=== PATIENT | female | born 1960 | race Caucasian/White ===

== ENCOUNTER 2019-08-21 09:39 | Outpatient (CLI) | payer MEDICAID, SELFPAY ==
[2019-08-21 12:50] LABS: Calculated LDL 155 mg/dL (<100); Cholesterol 264 mg/dL (<200); HDL Cholesterol 94 mg/dL (40-60); Triglyceride 76 mg/dL (<150)
== END 2019-08-21 09:59 ==
PROVIDERS: PCP Family Medicine; Visit Provider Family Medicine
DX: E78.5 Hyperlipidemia, unspecified (principal)
CPT/HCPCS: 36415; 80061

== ENCOUNTER 2020-06-22 02:38 | Outpatient (CLI) | payer MEDICAID, SELFPAY ==
[2020-06-23 22:17] LABS: Patient Race White; SARS-CoV-2 RNA Undetected (Undetected); SARS-CoV-2 Specimen Source Nasal
== END 2020-06-22 02:58 ==
PROVIDERS: PCP Family Medicine; Visit Provider Family Medicine
DX: Z11.59 Encounter for screening for other viral diseases (principal)
CPT/HCPCS: U0003

== ENCOUNTER 2020-09-01 15:02 | Outpatient (REF) | payer MEDICAID, SELFPAY ==
--- NOTE | 2020-09-01 14:30 | PAPFT_PTH ---
PATIENT: Breana Blandon LOC: [facility] U#:[id number] AGE/SX: 59/F ROOM: RE09/01/[address]: ADRIANA Rodriguez : 1960 BED: DIS: 09/01/2020 SPEC #: [id number] RECD: 09/01/20 18:09 STATUS: WANDA REQ #: [id number] FLORIN: 09/01/20 14:[address]: Cierra Fraire DEPT: [facility] Cytology RECD BY: Genna Guthrie ENTERED: 09/01/20 18:10 SP TYPE: PAPFT OTHR DR: Juno Horne MD Tissues: 1 - CX/ENDOCX FOR PAP SMEARS Procedures: PAP THIN PREP/UVM Screening HPV DNA PROBE Comments: [id number]
== END 2020-09-01 15:03 | disposition home or self-care (01) ==
LOC: LBN 15:02
PROVIDERS: PCP Family Medicine; Visit Provider Nurse Practitioner Family
DX: Z12.4 Encounter for screening for malignant neoplasm of cervix (principal); Z11.51 Encounter for screening for human papillomavirus (HPV)
CPT/HCPCS: 88142; 87624

== ENCOUNTER 2020-11-03 01:35 | Outpatient (CLI) | payer MEDICAID, SELFPAY ==
--- NOTE | 2020-11-03 10:41 | DI.MAMMO_ITS ---
EXAM: MG MAMMO SCREENING CLINICAL HISTORY: screening TECHNIQUE: Bilateral full field digital CC and MLO mammographic images were obtained with 3D tomosyn thesis and utilizing computer aided detection (CAD). COMPARISON: Available for comparison. FINDINGS: Masses/Architectural Distortion: None seen. There is a stable nodule in the upper outer quadrant of t he right breast. Microcalcifications: No suspicious pleomorphic-type are seen. Skin Thickening/Nipple Retraction: None. IMPRESSION: 1. No significant interval change with no specific features of malignancy noted. 2. Unless there is more urgent need, screening mammography is recommended, as per [employer] guidelines. BI-RADS Category 1 - Negative Breast Density - Category B - Scattered areas of fibroglandular density Breast density category C or D implies that the patient has dense breast tissue. Dense breast tissue is very common and is not abnormal but dense breast tissue can make it harder to find cancer on a ma mmogram. Also, dense breast tissue may increase their breast cancer risk. This information about the result of the mammogram report was provided to the patient to raise their awareness. Use this report when you speak with the patient about their risks for breast cancer, which includes their family hist ory. At that time, you may recommend for more screening tests (Ultrasound or MRI) as they might be us eful based on their risk. A negative radiographic report should not delay biopsy if a dominant or clinically suspicious mass is present. Up to ten percent of cancers are not identified on mammography. A negative report may reinforce clinical impression. Adenosis and dense breasts may obscure an underlying neoplasm. False positive reports average 6 to 10%. Patient will receive a letter notifying them of these results.
== END 2020-11-03 01:55 ==
PROVIDERS: PCP Family Medicine; Visit Provider Nurse Practitioner Family
DX: Z12.31 Encounter for screening mammogram for malignant neoplasm of breast (principal)
CPT/HCPCS: 77063; 77067

== ENCOUNTER 2021-09-09 02:50 | Outpatient (CLI) | payer MEDICAID, SELFPAY ==
[2021-09-09 09:50] LABS: Calculated LDL 156 mg/dL (<100); Cholesterol 265 mg/dL (<200); HDL Cholesterol 98 mg/dL (40-60); Triglyceride 59 mg/dL (<150)
[2021-09-09 10:07] LABS: Vitamin D 25 Total 32.2 ng/mL (30-100)
== END 2021-09-09 02:51 | disposition home or self-care (01) ==
LOC: LBO 02:50
PROVIDERS: PCP Family Medicine; Visit Provider Family Medicine
DX: E78.5 Hyperlipidemia, unspecified (principal); G40.909 Epilepsy, unspecified, not intractable, without status epilepticus
CPT/HCPCS: 36415; 80061; 82306

== ENCOUNTER 2022-09-06 00:47 | Outpatient (CLI) | payer MEDICAID, SELFPAY ==
--- NOTE | 2022-09-06 12:44 | DI.RAD_ITS ---
Exam(s) XR SHOULDER RT COMPLETE 2+V EXAM: XR SHOULDER RT COMPLETE 2+V CLINICAL HISTORY: rt shoulder pain,m25.511. TECHNIQUE: 2D digital imaging was performed. COMPARISON: No exams were available for comparison FINDINGS: Five views: No evidence of fracture or dislocation nor abnormal soft tissue calcifications. Mild degenerative ch anges noted in the glenohumeral and AC joints. No obvious diminution of the subacromial space. No o sseous lesions. Ipsilateral clavicle appears intact. IMPRESSION: Some degenerative change in the AC and glenohumeral joints. DATA REPOSITORY: RADIATION DOSE DELIVERED:
== END 2022-09-06 01:07 ==
LOC: DI 00:48
PROVIDERS: PCP Family Medicine; Visit Provider Family Medicine
DX: M19.011 Primary osteoarthritis, right shoulder (principal)
CPT/HCPCS: 73030

== ENCOUNTER 2022-09-14 01:11 | Outpatient (CLI) | payer MEDICAID, SELFPAY ==
--- NOTE | 2022-09-14 08:45 | DI.MAMMO_ITS ---
Exam(s) MAMMO SCREENING EXAM: MAMMO SCREENING CLINICAL HISTORY: screening, Z12.39 TECHNIQUE: Bilateral full field digital CC and MLO mammographic images were obtained with 3D tomosyn thesis and utilizing computer aided detection (CAD). COMPARISON: Available for comparison. FINDINGS: Masses/Architectural Distortion: The small nodules in the upper outer quadrants of each breast are st able. No suspicious nodules or areas of architectural distortion are present. Microcalcifications: No suspicious pleomorphic-type are seen. Skin Thickening/Nipple Retraction: None. IMPRESSION: 1. No significant interval change with no specific features of malignancy noted. 2. Unless there is more urgent need, screening mammography is recommended, as per [employer] guidelines. BI-RADS Category 2 - Benign Findings Breast Density - Category B - Scattered areas of fibroglandular density Breast density category C or D implies that the patient has dense breast tissue. Dense breast tissue is very common and is not abnormal but dense breast tissue can make it harder to find cancer on a ma mmogram. Also, dense breast tissue may increase their breast cancer risk. This information about the result of the mammogram report was provided to the patient to raise their awareness. Use this report when you speak with the patient about their risks for breast cancer, which includes their family hist ory. At that time, you may recommend for more screening tests (Ultrasound or MRI) as they might be us eful based on their risk. A negative radiographic report should not delay biopsy if a dominant or clinically suspicious mass is present. Up to ten percent of cancers are not identified on mammography. A negative report may reinforce clinical impression. Adenosis and dense breasts may obscure an underlying neoplasm. False positive reports average 6 to 10%. Patient will receive a letter notifying them of these results.
== END 2022-09-14 01:31 ==
LOC: DI 01:12
PROVIDERS: PCP Family Medicine; Visit Provider Family Medicine
DX: Z12.31 Encounter for screening mammogram for malignant neoplasm of breast (principal)
CPT/HCPCS: 77063; 77067

== ENCOUNTER 2023-05-13 11:41 | Emergency (ER) | payer MEDICAID, SELFPAY ==
--- NOTE | 2023-05-13 11:45 | DI.RAD_ITS ---
Exam(s) XR ELBOW RT LIMITED EXAM: XR ELBOW RT LIMITED CLINICAL HISTORY: arm pain. TECHNIQUE: 2D digital imaging was performed. COMPARISON: No exams were available for comparison FINDINGS: 3 views No evidence of acute fracture or joint effusion. No swelling of the olecranon bursa. Radial head an d neck appear intact. Epicondyles unremarkable. IMPRESSION: No acute osseous findings in the elbow. DATA REPOSITORY: RADIATION DOSE DELIVERED:
--- NOTE | 2023-05-13 11:45 | DI.RAD_ITS ---
Exam(s) XR WRIST RT COMPLETE EXAM: XR WRIST RT COMPLETE CLINICAL HISTORY: arm pain. TECHNIQUE: 2D digital imaging was performed. COMPARISON: No exams were available for comparison FINDINGS: 3 views There is an acute impacted and dorsally angulated comminuted fracture of the distal radius which viol ates the radiocarpal joint. Dorsal angulation noted there is positive ulnar variance. Subtle sugges tion of fracture of the ulnar styloid tip. Scaphoid and scapholunate distance appear unremarkable. No radiopaque foreign body. IMPRESSION: Intra-articular fracture of the distal radius with dorsal angulation of the distal fragment. Resulta nt positive ulnar variance. Possible subtle fracture of the ulnar styloid. DATA REPOSITORY: RADIATION DOSE DELIVERED:
[2023-05-13 11:51] VITALS: BP 169/78; PULSE 70; RESP 24; O2SAT 100
--- NOTE | 2023-05-13 12:00 | W.ED.GENAD ---
Discharge Plan Disposition Patient Disposition: Home Discharge Details Clinical Impression: Distal radius fracture, right Primary Care Provider: Juno Horne ED Provider: Peter Khan Home Meds and New Rx's Prescriptions: New oxycodone-acetaminophen [Percocet] 5-325 mg tablet 1 tab PO Q6H PRN (Reason: pain) Qty: 12 0RF No Action triamcinolone acetonide 0.1 % cream 1 applic topical BID PRN Patient Comments: APPLY A THIN LAYER TOPICALLY TO AFFECTED AREA ON LEFT EAR TWICE DAILY FOR 5 DAYS OUT OF THE WEEK UP TO 1 MONTH clobetasol 0.05 % solution 1 applic topical DAILY Discharge Instructions Instructions: Wrist Fracture in Adults (ED), Splint Care (ED) Additional Instructions: keep arm in sling and splint. splint can't get wet. can apply ice to help with symptoms. take pain medication as needed, can also take motrin. follow up with ortho clinic Referrals: [facility] [Provider Group] - 1 week (right distal radius, reduced and splinted ) Medical Decision Making Emergent evaluation of right wrist pain. Initial differential includes fracture, dislocation, ligamentous injury, soft tissue injury. Patient has obvious deformity of right forearm. Initial plan for pain control and imaging of the area. 1300: imaging reviewed and independently interpreted. Distal radius fracture noted. No additional fractures appreciated on imaging. 1320: hematoma block done and patient hung in finger traps. patient reports improvement in her pain after these things. 1600: Reduction and splinting performed. Postreduction x-ray reviewed and independently interpreted, there is satisfactory reduction of the fracture fragment. Patient placed in sling. Pain control provided. Referred for orthopedic follow-up. HPI General Date/Time Provider Initiated Documentation: 05/13/23 11:58. Limitations to Documentation: physical limitation. Information obtained by: patient. HPI Narrative: 62-year-old female without significant past medical history presents for evaluation of acute onset severe right wrist pain. She reports that she was walking outside and slipped on a ramp. She landed on her outstretched right arm. She is right-hand dominant. She reports severe pain localized to the right wrist associated with an abnormal appearance of the arm. Pain is worse with touch and any movement. She denies any numbness tingling or bleeding. Related Data Home Medications Medication Instructions Recorded Confirmed clobetasol 0.05 % scalp solution 1 applic topical DAILY 01/13/22 05/13/23 triamcinolone acetonide 0.1 % 1 applic topical BID PRN 09/01/22 05/13/23 topical cream oxycodone-acetaminophen 5 mg-325 1 tab PO Q6H PRN pain #12 tabs 05/13/23 mg tablet (Percocet) Previous Rx's Medication Instructions Recorded oxycodone-acetaminophen 5 mg-325 1 tab PO Q6H PRN pain #12 tabs 05/13/23 mg tablet (Percocet) Allergies Allergy/AdvReac Type Severity Reaction Status Date / Time No Known Drug Allergies Allergy Verified 05/13/23 11:57 General Stated Complaint: Orthopedic ARNIE: 3 PFSH All Active Problems (Updated 05/13/23 @ 15:41 by Peter Khan MD) Distal radius fracture, right (Acute) Shoulder pain, right (Acute) Conductive hearing loss, external ear (Acute) Exostosis of both external ear canals (Acute) 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 MOHS Procedure [facility]UPP[facility] LIP Arthroplasty of knee (06/28/13) LEFT KNEE; PARTIAL LATERAL MENISCECTOMY; CHONDOPLASTY; OPEN LATERAL RETINACULAR RELEASE; 05/16/16 LEFT KNEE, [facility] Family History Mother Hypothyroidism Father , age 82 Hyperlipidemia Asthma Skin cancer CAD (coronary artery disease) of [place] at age 82 Sister Asthma Brother Asthma Maternal Grandfather Heart disease Paternal Grandfather Diabetes Essential hypertension Heart disease Hyperlipidemia Stroke Alcohol abuse Cancer Maternal Grandmother Depression Cancer Paternal Grandmother No problems noted. Son No problems noted. Daughter No problems noted. Social History Smoking/Tobacco Use Status: Never Second Hand Exposure: No Smoking risk assessment performed?: Yes Alcohol Intake: current Alcohol Intake frequency: a few times a week Alcohol type: wine Drug use: Never Substance use type: does not use Counseling provided: none Caregiver/Support person: No Household members: spouse Housing: house Communication Needs: None Do you need help understanding health information?: Rarely current occupation: SELF-EMPLOYED Pets and animals: Yes Pets and animals: cat(s) and dog(s) Sexually active: Yes Do you think of yourself as: straight/heterosexual Current gender identity: female What is your relationship status?: How often do you talk on the phone with friends or family?: three or more times per week How often do you get together with friends or relatives?: three or more times per week How often do you attend jew or adventism services?: decline to answer Do you belong to any clubs or organized social groups?: decline to answer Panel score (0-1 are the most socially isolated patients): 2 What type of physical activity do you participate in: walking Duration: > 90 minutes/day Frequency: daily Dian/Mandaeism: No preference Special dian needs: No Seatbelt use: always Helmet use: Yes Helmet use: always 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 Elbow nontender, compartments soft, right shoulder nontender No rashes or lesions. no focal neurologic deficits Appropriate mood and affect Course Vital Signs Vital signs: Vital Signs Pulse 70 05/13/23 11:51 Respiratory Rate 24 05/13/23 11:51 Blood Pressure 169/78 H 05/13/23 11:51 Pulse Oximetry 100 05/13/23 11:51 Pulse 70 05/13/23 11:51 Respiratory Rate 24 05/13/23 11:51 Blood Pressure 169/78 H 05/13/23 11:51 Blood Pressure Position Sitting 05/13/23 11:51 Pulse Oximetry 100 05/13/23 11:51 Oxygen Delivery Method Room Air 05/13/23 11:51 Oxygen Flow Rate 0 05/13/23 11:51 Pain Level 10 05/13/23 11:51 Procedures Nerve Block Nerve Block 1: Local Anesthetic: Lidocaine 1% Amount of anesthesia used (mL): 5 Side: right Nerve Blocks: hematoma block Procedure Successful: Yes Patient Tolerated Procedure: well and no complications Orthopedic Fracture Reduction Fracture #1: Side: right Fracture Reduction Location: radius Analgesia: hematoma block Technique: direct manipulation and finger traps Post Reduction X-rays Demonstrate: acceptable reduction Post-reduction neuro exam: intact Post-reduction vascular exam: intact Splint Applied: Yes Patient Tolerated Procedure: well and no complications Orthopedic Splinting/Casting Injury #1: Side: right Upper Extremity Injury Location: forearm Upper Extremity Immobilizer: sugartong splint Other Orthopedic Equipment: other (Sling)
[2023-05-13] MEDS: fentaNYL 100 MCG/2 ML VIAL IVP (12:05)
[2023-05-13] MEDS: Ondansetron 4 MG/2 ML VIAL IVP (12:05)
--- NOTE | 2023-05-13 12:15 | DI.RAD_ITS ---
Exam(s) XR SHOULDER RT COMPLETE 2+V EXAM: XR SHOULDER RT COMPLETE 2+V CLINICAL HISTORY: arm pain. TECHNIQUE: 2D digital imaging was performed. COMPARISON: CR XR SHOULDER RT COMPLETE 2+V from 09/06/2022 FINDINGS: 3 views No evidence of acute fracture or dislocation. Minimal degenerative changes in the glenohumeral joint . Moderate degenerative changes in the AC joint. There is some narrowing of the subacromial space e vident but no prominent upward subluxation of the humeral head in the glenoid fossa. IMPRESSION: No acute fracture nor dislocation. Some diminution of the subacromial space noted. This may correla te with rotator cuff pathology. DATA REPOSITORY: RADIATION DOSE DELIVERED:
--- NOTE | 2023-05-13 13:02 | DI.VRAD_ITS ---
PROCEDURE INFORMATION: Exam: XR Right Elbow Exam date and time: 05/13/2023 12:43 PM Age: 62 years old Clinical indication: Injury or trauma; Fall; Blunt trauma (contusions or hematomas); Wrist; Right TECHNIQUE: Imaging protocol: Radiologic exam of the right elbow. Views: 1 or 2 views. COMPARISON: CR XR WRIST RT COMPLETE 05/13/2023 12:37 PM FINDINGS: Bones/joints: Normal. Soft tissues: Normal. IMPRESSION: No acute findings. Dictated and Authenticated by: Stacie Celeste MD. Ordering:CHEMO Melgar MD
--- NOTE | 2023-05-13 13:02 | DI.VRAD_ITS ---
PROCEDURE INFORMATION: Exam: XR Right Wrist Exam date and time: 05/13/2023 12:37 PM Age: 62 years old Clinical indication: Injury or trauma; Fall; Blunt trauma (contusions or hematomas); Wrist; Right TECHNIQUE: Imaging protocol: Radiologic exam of the right wrist. Views: 3 or more views. COMPARISON: No relevant prior studies available. FINDINGS: Bones/joints: Intra-articular fracture deformity of the distal right radius with dorsal angulation of the distal fracture fragments. Soft tissues: Normal. IMPRESSION: Intra-articular fracture deformity of the distal right radius with dorsal angulation of the distal fracture fragments Dictated and Authenticated by: Stacie Celeste MD. Ordering:CHEMO Melgar MD
--- NOTE | 2023-05-13 13:09 | DI.VRAD_ITS ---
PROCEDURE INFORMATION: Exam: XR Right Shoulder Exam date and time: 05/13/2023 12:51 PM Age: 62 years old Clinical indication: Injury or trauma; Fall; Blunt trauma (contusions or hematomas); Arm, upper; Right TECHNIQUE: Imaging protocol: Radiologic exam of the right shoulder. Views: 2 or more views. COMPARISON: CR XR SHOULDER RT COMPLETE 2+V 09/06/2022 12:39 PM FINDINGS: Bones/joints: Degenerative changes in the acromioclavicular joint and glenohumeral joint. There is no evidence of acute fracture.There is no evidence of malalignment or dislocation. Narrowing of the subacromial space may indicate impingement syndrome. Soft tissues: Normal. IMPRESSION: 1. There is no evidence of acute fracture.There is no evidence of malalignment or dislocation. 2. Narrowing of the subacromial space may indicate impingement syndrome. Dictated and Authenticated by: Susan Campbell MD. Ordering:CHEMO Melgar MD
[2023-05-13 13:35] VITALS: BP 138/64; PULSE 70; RESP 18; O2SAT 100
[2023-05-13] MEDS: ACETAMINOPHEN 1,000 MG/100 ML BTL 400 MG IVPB (14:48)
[2023-05-13] MEDS: Ketorolac 15 MG/ML VIAL 10 MG IVP (14:49)
--- NOTE | 2023-05-13 15:00 | DI.RAD_ITS ---
Exam(s) XR WRIST RT LIMITED EXAM: XR WRIST RT LIMITED CLINICAL HISTORY: wrist pain post reduction. TECHNIQUE: 2D digital imaging was performed. COMPARISON: CR,XR XR WRIST RT COMPLETE from 05/13/2023 FINDINGS: 3 views: In cast post reduction views Improved alignment and less dorsal angulation at the distal radius fracture site evident. No signifi cant remaining ulnar variance. There appears to be probable fracture of the ulnar styloid tip. IMPRESSION: Improved alignment. Less dorsal angulation. DATA REPOSITORY: RADIATION DOSE DELIVERED:
--- NOTE | 2023-05-13 15:32 | DI.VRAD_ITS ---
PROCEDURE INFORMATION: Exam: XR Right Wrist Exam date and time: 05/13/2023 3:14 PM Age: 62 years old Clinical indication: Pain; Right; Patient HX: R wrist post-reduction TECHNIQUE: Imaging protocol: Radiologic exam of the right wrist. Views: 1 or 2 views. COMPARISON: CR XR WRIST RT COMPLETE 05/13/2023 12:37 PM FINDINGS: Tubes, catheters and devices: Plaster splint in place Bones/joints: Comminuted displaced impacted distal radius fracture after reduction is improved in appearance. Fracture fragments are displaced posteriorly. Soft tissues: Soft tissue swelling of the wrist IMPRESSION: Comminuted displaced impacted distal radius fracture after reduction is improved in appearance. Fracture fragments are displaced posteriorly. Dictated and Authenticated by: Susan Campbell MD. Ordering:CHEMO Melgar MD
[2023-05-13] MEDS: oxyCODONE 5 mg/Acetaminophen 325 mg TAB 1 TAB PO (15:54)
[2023-05-13 16:03] VITALS: BP 169/85; PULSE 71; TEMP 36.6; O2SAT 96
--- NOTE | 2023-05-13 23:36 | NUR.NOTE ---
pt called 2330 asking for pain management advice-shooting nerve pain. . per MD -told her she could double up on percocet-2tabs every 4-6 hours, ice, mildly elevate. Nursing Note:
--- NOTE | 2023-05-16 06:54 | NUR.NOTE ---
Accessed pt chart to determine diagnosis for [facility] billing purposes. Nursing Note:
== END 2023-05-13 16:19 | disposition home or self-care (01) ==
PROVIDERS: Emergency Provider Emergency Medicine; PCP Family Medicine
DX: S52.571A Other intraarticular fracture of lower end of right radius, initial encounter for closed fracture (principal); W18.39XA Other fall on same level, initial encounter; Y93.01 Activity, walking, marching and hiking; Y92.9 Unspecified place or not applicable; Y99.9 Unspecified external cause status
CPT/HCPCS: 96374; 96375; 96376; 99283; 25605; 73030; 73070; 73100; 73110; J0131; J1885; J2405; J3010

== ENCOUNTER 2023-05-14 02:32 | Emergency (ER) | payer MEDICAID, SELFPAY ==
[2023-05-14 02:35] VITALS: BP 159/95; PULSE 82; RESP 18; TEMP 36.7; O2SAT 95
--- NOTE | 2023-05-14 02:50 | ED.GENADUL_ITS ---
Discharge Plan Disposition Patient Disposition: Home Discharge Details Chief Complaint: Orthopedic Clinical Impression: Pain due to fracture Primary Care Provider: Juno Horne ED Provider: Andry Noble Home Meds and New Rx's Prescriptions: No Action triamcinolone acetonide 0.1 % cream 1 applic topical BID PRN Patient Comments: APPLY A THIN LAYER TOPICALLY TO AFFECTED AREA ON LEFT EAR TWICE DAILY FOR 5 DAYS OUT OF THE WEEK UP TO 1 MONTH clobetasol 0.05 % solution 1 applic topical DAILY oxycodone-acetaminophen [Percocet] 5-325 mg tablet 1 tab PO Q6H PRN (Reason: pain) Qty: 12 0RF Discharge Instructions Instructions: Narcotic Safety (ED) Additional Instructions: At this time there is no evidence of neurovascular compromise noted on exam. Unfortunately it appears that the pain is the natural component of the fracture. We have slightly loosened up the splint. Please ice the area frequently. You can take 1000 mg of Tylenol every 6 hours and 800 mg of ibuprofen every 6 hours. These are the maximum doses. You can take your Percocets as prescribed, and take one of the Roxicodone's with them for each administration as needed for supplementation. If you notice any worsening of your symptoms, or any new symptoms such as change in color for your fingers, viselike sensation in your hand or wrist or forearm, vomiting, diarrhea, fever, chills, shortness of breath, chest pain, numbness, weakness, or fainting , please return immediately to the emergency department for reevaluation. Please follow up with your primary care provider as soon as possible for reassessment and reevaluation. As always, it was a pleasure participating in your medical care today. Referrals: Juno Horne MD [Primary Care Provider] - Medical Decision Making 62-year-old female who is right-hand dominant who presented earlier today for right distal radius fracture who had a closed reduction performed here in the ED presents tonight for evaluation of continued pain. She was given NSAIDs for home use as well as a few Percocets. Unfortunately she feels that the pain has gotten to a point that it has become notably unbearable. She presents today for further management. She states that it feels like an aching throbbing sensation in her wrist and hand traveling up towards her forearm. She denies any numbness or tingling. No new falls. No other trauma. She has been icing the area and has been taking the Percocets and Tylenol at home as prescribed. Pain is improved when she gets up and performs activities. It seems to be worse when she is lying down trying to sleep. No other complaints at this time. No other modifying factors. Exam was performed to rule out life-threatening etiologies. Exam demonstrates no neurovascular compromise. Good radial pulse. No tense compartments suggestive of compartment syndrome. Symptoms appear consistent with post fracture pain. I suspect it is worsened secondary to the time of night and the increased swelling. The splint was slightly loosened, will recommend continued ice therapy at home as well as maximum dose NSAID therapy. I did discuss options of continued or additional opiate management patient did consent to receive additional opiates at this time for pain control as there is no other evidence of life or limb threatening etiology or neurovascular compromise. No evidence of compartment syndrome. Patient will be given 6 mg of IM morphine, 30 mg of IM Toradol, 4 mg of Zofran, and 4 Roxicodone's to go home with to use as needed. Discussed concerning red flags suggestive of compartment syndrome for which to return. Patient and family understand. I have extensively reviewed the treatment plan and discharge instructions with the patient and their family. I have addressed all patient concerns at this time. The patient and family was made aware of what symptoms to monitor for that would warrant a return to the emergency department. Discussed the plan with the patient and family, they d emonstrate verbal understanding and agreement with our assessment and plan at this time. The documentation in this chart was dictated using Brainly dictation software. Please excuse any dictation errors. HPI General Date/Time Provider Initiated Documentation: 05/14/23 02:33 . HPI Narrative: 62-year-old female who is right-hand dominant who presented earlier today for right distal radius fracture who had a closed reduction performed here in the ED presents tonight for evaluation of continued pain. She was given NSAIDs for home use as well as a few Percocets. Unfortunately she feels that the pain has gotten to a point that it has become notably unbearable. She pres ents today for further management. She states that it feels like an aching throbbing sensation in her wrist and hand traveling up towards her forearm. She denies any numbness or tingling. No new falls. No other trauma. She has been icing the area and has been taking the Percocets and Tylenol at home as prescribed. Pain is improved when she gets up and performs activities. It seems to be worse when she is lying down trying to sleep. No other complaints at this time. No other modifying factors. Related Data Home Medications Medication Instructions Recorded Confirmed clobetasol 0.05 % scalp solution 1 applic topical DAILY 01/13/22 05/13/23 triamcinolone acetonide 0.1 % 1 applic topical BID PRN 09/01/22 05/13/23 topical cream oxycodone-acetaminophen 5 mg-325 1 tab PO Q6H PRN pain #12 tabs 05/13/23 mg tablet (Percocet) Previous Rx's Medication Instructions Recorded oxycodone-acetaminophen 5 mg-325 1 tab PO Q6H PRN pain #12 tabs 05/13/23 mg tablet (Percocet) Allergies Allergy/AdvReac Type Severity Reaction Status Date / Time No Known Drug Allergies Allergy Verified 05/13/23 11:57 General Stated Complaint: Orthopedic ARNIE: 4 Review of Systems All systems reviewed & are unremarkable except as noted in HPI and below PFSH All Active Problems Pain due to fracture (Acute) Distal radius fracture, right (Acute) Shoulder pain, right (Acute) Conductive hearing loss, external ear (Acute) Exostosis of both external ear canals (Acute) Chronic eczematoid otitis externa of both ears (Acute) Impacted cerumen, bilateral (Acute) Vasomotor rhinitis (Acute) Nasal congestion (Acute) Left foot pain (Acute) Watery eyes (Chronic) recommend optometry eval Tear of medial meniscus of knee (Acute 06/12/13) Osteoarthritis of knee (Acute 06/12/13) Knee pain (Acute) Basal cell carcinoma of upper lip (Acute) 03/17/15; [facility] [place] [facility] MICROGRAPHIC SURGERY Anemia (Acute) Surgical History Replacement of total knee joint (04/06/15) Bilateral total knee, [facility] [place] SKIN EXCISION 03/17/15; [facility] [place] UPPER LIP RIGHT MIDLINE. MOHS Procedure [facility] [place] Arthroplasty of knee (06/28/13) LEFT KNEE; PARTIAL LATERAL MENISCECTOMY; CHONDOPLASTY; OPEN LATERAL RETINACULAR RELEASE; 05/16/16 LEFT KNEE, [facility], [facility] Family History Mother Hypothyroidism Father , age 82 Hyperlipidemia Asthma Skin cancer CAD (coronary artery disease) of [place] at age 82 Sister Asthma Brother Asthma Maternal Grandfather Heart disease Paternal Grandfather Diabetes Essential hypertension Heart disease Hyperlipidemia Stroke Alcohol abuse Cancer Maternal Grandmother Depression Cancer Paternal Grandmother No problems noted. Son No problems noted. Daughter No problems noted. Social History Smoking/Tobacco Use Status: Never Second Hand Exposure: No Smoking risk assessment performed?: Yes Alcohol Intake: current Alcohol Intake frequency: a few times a week Alcohol type: wine Drug use: Never Substance use type: does not use Counseling provided: none Caregiver/Support person: No Household members: spouse Housing: house Communication Needs: None Do you need help understanding health information?: Rarely current occupation: SELF-EMPLOYED Pets and animals: Yes Pets and animals: cat(s) and dog(s) Sexually active: Yes Do you think of yourself as: straight/heterosexual Current gender identity: female What is your relationship status?: How often do you talk on the phone with friends or family?: three or more times per week How often do you get together with friends or relatives?: three or more times per week How often do you attend yazidi or restoration services?: decline to answer Do you belong to any clubs or organized social groups?: decline to answer Panel score (0-1 are the most socially isolated patients): 2 What type of physical activity do you participate in: walking Duration: > 90 minutes/day Frequency: daily Dian/Rastafari: No preference Special dian needs: No Seatbelt use: always Helmet use: Yes Helmet use: always Drive intox or ride w/intox 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 3.ENT: Atraumatic external nose and ears. Moist MM. Neck: Symmetric, trachea midline, No thyromegaly. 4.CVS: +S1/S2, No murmurs or gallops. Peripheral pulses 2+ and equal in all extremities. Brisk capillary refill in all extremities. 5.RESP: Unlabored respiratory effort. Clear to auscultation bilaterally. No wheezes rales or rhonchi 6.GI: Soft, Nontender/Nondistended, No hepatosplenomegaly. No guarding or rebound. 7.MSK: Splint was unwrapped on right wrist. Radial pulse +2. No tense compartment. There is some slight swelling in the fingers, but there is good brisk capillary refill in all fingers. Intact sensation throughout the hand. No evidence of compartment syndrome whatsoever. The splint was rewrapped slightly more loosely. No signs of neurovascular compromise. 8.Skin: Warm, Dry. No rashes or lesions. 9.Neuro: vault attendant II-XII grossly intact. Sensation grossly intact, no focal neurologic deficits. 10.Psych: (AAO) x3. Appropriate mood and affect Course Vital Signs Vital signs: Vital Signs Temperature 36.7 C 05/14/23 02:35 Pulse 82 05/14/23 02:35 Respiratory Rate 18 05/14/23 02:35 Blood Pressure 159/95 H 05/14/23 02:35 Pulse Oximetry 95 05/14/23 02:35 Temperature 36.7 C 05/14/23 02:35 Pulse 82 05/14/23 02:35 Respiratory Rate 18 05/14/23 02:35 Respiratory Effort Normal 05/14/23 02:37 Blood Pressure 159/95 H 05/14/23 02:35 Pulse Oximetry 95 05/14/23 02:35 Oxygen Delivery Method Room Air 05/14/23 02:35 Oxygen Flow Rate 0 05/14/23 02:35 Pain Level 7 05/14/23 02:37
[2023-05-14] MEDS: Ketorolac 30 MG/ML VIAL IM (03:00)
[2023-05-14] MEDS: Ondansetron O.D.T. 4 MG TABEF (03:00)
[2023-05-14] MEDS: MORPHine 10 MG/ML VIAL 6 MG IM (03:01)
--- NOTE | 2023-05-14 04:26 | NUR.NOTE ---
Orthopedic Referral faxed to [facility]. Follow-up in 1 week for Right Distal Radius Fracture.
== END 2023-05-14 03:17 | disposition home or self-care (01) ==
PROVIDERS: Emergency Provider Student in an Organized Health Care Education/Training Program; PCP Family Medicine
DX: S52.501A Unspecified fracture of the lower end of right radius, initial encounter for closed fracture (principal); X58.XXXA Exposure to other specified factors, initial encounter
CPT/HCPCS: 96372; 99284; J1885; J2270; J8597

== ENCOUNTER 2023-05-17 12:31 | Day surgery (SDC) | payer MEDICAID, SELFPAY ==
[2023-05-17] VITALS (10 sets, daily range): BP systolic 119–164; BP diastolic 74–95; PULSE 65–78; RESP 11–18; TEMP 36.5–37.1; O2SAT 94–97; BMI 25.7
--- NOTE | 2023-05-17 12:48 | PDOC.DSDIS_ITS ---
Date of service: 05/17/23 Time of Service: 12:48 Discharge Plan Disposition Patient Disposition: Home Condition: Good Discharge Details Reason For Visit: ORIF R Wrist Attending Provider: Edward Henderson Primary Care Provider: Juno Horne Home Meds and New Rx's Prescriptions: New acetaminophen 500 mg tablet 1,000 mg PO TID Qty: 90 3RF ibuprofen 600 mg tablet 600 mg PO TID PRNQty: 90 3RF oxycodone 5 mg tablet 10 mg PO Q6H MDD 6 tabs PRN (Reason: pain) Qty: 18 0RF Continued triamcinolone acetonide 0.1 % cream 1 applic topical BID PRN Patient Comments: APPLY A THIN LAYER TOPICALLY TO AFFECTED AREA ON LEFT EAR TWICE DAILY FOR 5 DAYS OUT OF THE WEEK UP TO 1 MONTH clobetasol 0.05 % solution 1 applic topical DAILY oxycodone-acetaminophen [Percocet] 5-325 mg tablet 1 tab PO Q6H MDD 4 tabs PRN (Reason: pain) Qty: 20 0RF oxycodone 5 mg tablet 10 mg PO Q6H MDD 40 PRN (Reason: pain) Qty: 10 0RF Rx Instructions: severe wrist pain from fracture Discharge Instructions Additional Instructions: Wrist Fracture Fixation Discharge Instructions Activity: You should keep the hand/wrist elevated as much as possible for the first few days. You may use the other fingers as tolerated but avoid trying to do too much too soon. You may perform light activities with the splint in place. Dressing/Cast: Your splint should stay in place at all times. Do NOT get it wet. You may loosen the DUY wrap if you feel it is too tight and then rewrap more loosely. Medications: - You should take Tylenol and Ibuprofen for baseline pain control. - You have been prescribed a stronger pain medication, Oxycodone, for breakthrough pain. - You may apply ice over the wrist, just double bag so it doesn't get wet. Follow-up: 10-14 days Referrals: Edward Henderson MD [ [facility] STAFF PHYSICIAN] - Equipment/Supplies: Splint and Sling Activity:: Elevate Remove Dressings/Wound Care:: Do Not Remove Shower/Bathe:: Cover Diet:: As Tolerated Discharge Orders Discharge Orders: Discharge Order (Routine); Ordered 05/17/23 Ordered By: Nishant Siegel
[2023-05-17] MEDS: Lactated Ringers 1,000 ML 80 ML IV (13:13)
--- NOTE | 2023-05-17 13:20 | ANES.PREOP_ITS ---
General Info Date of Service Date Performed: 05/17/23 Height: 5 ft 11 in Weight: 83.6 kg Body Mass Index (BMI): 25.7 Surgical Procedure: Operation Date: 05/17/23 15:25 Proposed Procedure Side Surgeon p Wrist ORIF Distal Radius Right Edward Henderson MD Meds Allergies and Home Medications Allergies Allergy/AdvReac Type Severity Reaction Status Date / Time No Known Drug Allergies Allergy Verified 05/17/23 12:54 Home Medication Medication Instructions Recorded clobetasol 0.05 % scalp solution 1 applic topical DAILY 01/13/22 triamcinolone acetonide 0.1 % 1 applic topical BID PRN 09/01/22 topical cream oxycodone 5 mg tablet 10 mg (2 x 5 mg) PO Q6H PRN pain 05/15/23 #10 tabs oxycodone-acetaminophen 5 mg-325 1 tab PO Q6H PRN pain #20 tabs 05/15/23 mg tablet (Percocet) acetaminophen 500 mg tablet 1,000 mg (2 x 500 mg) PO TID #90 05/17/23 tabs ibuprofen 600 mg tablet 600 mg PO TID PRN #90 tabs 05/17/23 oxycodone 5 mg tablet 10 mg (2 x 5 mg) PO Q6H PRN pain 05/17/23 #18 tabs Current Visit Medications: Current Medications Generic Name Dose Route Start Last Admin Trade Name Freq PRN Reason Stop Dose Admin Acetaminophen 650 mg 05/17/23 12:47 Acetaminophen 325 Mg Tab PO 06/16/23 12:46 Q4H PRN PRN Ringer's Solution 1,000 mls @ 80 mls/hr 05/17/23 06:00 05/17/23 13:13 IV 06/15/23 23:59 80 mls/hr INFUSION LUL Administration Cefazolin Sodium/Dextrose 2 gm in 50 mls @ 100 mls/hr 05/17/23 06:00 Ancef Duplex IVPB 06/15/23 23:59 PREOP LUL IV Miscellaneous Supplies 1 each 05/17/23 06:00 Iv Access IV 06/15/23 23:59 DIRECTED LUL Oxycodone HCl 5 mg 05/17/23 12:47 Oxycodone 5 Mg Tab PO 06/16/23 12:46 Q3H PRN PRN Pain Sodium Chloride 0 ml 05/17/23 06:00 Normal Saline Flush 10 Ml Syr IV 06/15/23 23:59 PRN PRN Sodium Chloride 0 ml 05/17/23 06:00 Normal Saline 10 Ml Vial IJ 06/15/23 23:59 DIRECTED PRN Sterile Water 0 ml 05/17/23 06:00 Water,Injection,Sterile 10 Ml Vial IJ 06/15/23 23:59 DIRECTED PRN PFSH Active Problems Active Problems: Problem Status Onset Code Closed fracture of distal end of right radius S52.501A Pain due to fracture T14.8XXA Distal radius fracture, right S52.501A Shoulder pain, right M25.511 Conductive hearing loss, external ear H90.2 Exostosis of both external ear canals H61.813 Chronic eczematoid otitis externa of both ears H60.8X3 Impacted cerumen, bilateral H61.23 Vasomotor rhinitis J30.0 Nasal congestion R09.81 Left foot pain M79.672 Watery eyes H04.203 Tear of medial meniscus of knee 06/12/13 S83.249A Osteoarthritis of knee 06/12/13 M17.10 Knee pain M25.569 Basal cell carcinoma of upper lip C44.01 Anemia D64.9 Surgical History Surgical History Replacement of total knee joint (04/06/15) Bilateral total knee, [facility] [place] SKIN EXCISION 03/17/15; [facility] [place] UPPER LIP RIGHT MIDLINE. MOHS Procedure [facility] [place]UPPER LIP Arthroplasty of knee (06/28/13) LEFT KNEE; PARTIAL LATERAL MENISCECTOMY; CHONDOPLASTY; OPEN LATERAL RETINACULAR RELEASE; 05/16/16 LEFT KNEE, [facility], [facility] Tobacco Smoking/Tobacco Use Status: Never Passive smoking exposure: No Second hand exposure: No Alcohol Alcohol Intake: current Alcohol intake frequency: a few times a week Alcohol type: wine Substance Use Substance use: Never Substance use type: does not use Counseling provided: none Vital Signs and Lab Results Vital Signs Most Recent Vital Signs in EMR: Most Recent Vital Signs Temp Pulse Resp BP Pulse Ox 36.6 C 78 18 119/90 97 05/17/23 12:30 05/17/23 12:30 05/17/23 12:30 05/17/23 12:30 05/17/23 12:30 Lab Results Blood Type / Crossmatch: No Data to Display Complete Blood Count: No Data to Display Complete Metabolic Panel: No Data to Display Liver Function Panel: No Data to Display Coagulation Panel: No Data to Display Cardiac Panel: No Data to Display Arterial Blood Gas: No Data to Display Venous Blood Gas: No Data to Display Pancreas Panel: No Data to Display Thyroid Panel: No Data to Display Infectious Disease: No Data to Display Blood Cultures: No Data to Display Toxicology Panel: No Data to Display Anesthesia Assessment and Plan Anesthesia History Personal History: No History of Anesthesia Complications Family History: No Family History of Anesthesia Complications Exercise Tolerance Exercise Tolerance: Metabolic Equivalents>4 Pertinent Negatives Pertinent Negatives: No Symptoms of GERD, No Major Cardiovascular Symptoms or Complaints, No Major Pulmonary Symptoms or Complaints and No History of CVA/TIA Cardiac & Pulmonary Exam Cardiac Exam: Normal S1/S2 Heart Sounds Pulmonary Exam: Clear Bilateral Breath Sounds Implantable Cardiac Device Does patient have a Pacemaker or an ICD?: No Airway Exam Known Difficult Airway: No Mallampati Class: 2 Mouth Opening: Normal (> 3cm) Thyromental Distance: Greater than 3 cm Neck Range of Motion: Full ROM Neck Circumference: Normal Teeth Condition: Normal Dentition ASA Classification ASA Score: ASA 2 Emergency Case?: No NPO Status NPO Status: NPO Clears >2 hours, Solids >8 hours Anesthesia Plan Resuscitation Status: Full Code Anesthesia Technique: General Anesthesia Airway Planned: Natural Airway (Or ETT as a backup depending on block density) Pain Management: Surgeon and patient request nerve block Monitors Used: Standard Monitors Preoperative Comments:: 62 yo female with injury to forearm here for radial ORIF No significant PMH, no problems with anesthesia in the past. Plan of axillary block with GA natural airway, ETT/LMA as backup.
--- NOTE | 2023-05-17 13:31 | W.PREOPHP ---
Assessment and Plan Assessment and plan (1) Closed fracture of distal end of right radius: Status: Acute Assessment and plan: Hellen is a 62-year-old who suffered a fall onto an outstretched right arm, resulting in intra-articular comminuted and displaced distal radius fracture. Given her young age, hand dominance, and intra-articular, displaced nature of the fracture, I recommended proceeding with operative fixation. I reviewed this with her. I reviewed the potential risk to include bleeding, infection, pain, stiffness, damage to nerves and vessels, damage to muscle and tendons, nonunion, nonunion, or prominence, hardware failure. Despite these risk, she elected to proceed. History of Present Illness History of Present Illness Chief Complaint: Right Distal Radius Fracture Narrative: Lorrie is an active 62-year-old who unfortunately fell onto an outstretched right hand, suffering a displaced intra-articular distal radius fracture. She was walking down a ramp which was slippery when she fell try to catch her body weight with the right hand. She had no issues with the right hand or wrist prior to the fall. She denies specific numbness or tingling suffered global different sensation about the hand. She has had significant pain since the fall. She has been taking pain medication, oxycodone, with sometimes minimal improvement. She return to the emergency department due to pain. Her primary care provider did place her on oxycodone 10 mg which has helped out some. However, she continues to have throbbing pain about the right wrist. No recent medical issues. No chest pain or shortness of breath. Review of Systems All systems reviewed & are unremarkable except as noted in HPI and below PFSH All Active Problems Closed fracture of distal end of right radius (Acute) Pain due to fracture (Acute) Distal radius fracture, right (Acute) Shoulder pain, right (Acute) Conductive hearing loss, external ear (Acute) Exostosis of both external ear canals (Acute) Chronic eczematoid otitis externa of both ears (Acute) Impacted cerumen, bilateral (Acute) Vasomotor rhinitis (Acute) Nasal congestion (Acute) Left foot pain (Acute) Watery eyes (Chronic) recommend optometry eval Tear of medial meniscus of knee (Acute 06/12/13) Osteoarthritis of knee (Acute 06/12/13) Knee pain (Acute) Basal cell carcinoma of upper lip (Acute) 03/17/15; [facility] [place]/P Mohs MICROGRAPHIC SURGERY Anemia (Acute) Surgical History Replacement of total knee joint (04/06/15) Bilateral total knee, [facility] [place] SKIN EXCISION 03/17/15; [facility] [place] UPPER LIP RIGHT MIDLINE. MOHS Procedure [facility] [place] L[place] Arthroplasty of knee (06/28/13) LEFT KNEE; PARTIAL LATERAL MENISCECTOMY; CHONDOPLASTY; OPEN LATERAL RETINACULAR RELEASE; 05/16/16 LEFT KNEE, [facility], [facility] Family History Mother Hypothyroidism Father , age 82 Hyperlipidemia Asthma Skin cancer CAD (coronary artery disease) of [place] at age 82 Sister Asthma Brother Asthma Maternal Grandfather Heart disease Paternal Grandfather Diabetes Essential hypertension Heart disease Hyperlipidemia Stroke Alcohol abuse Cancer Maternal Grandmother Depression Cancer Paternal Grandmother No problems noted. Son No problems noted. Daughter No problems noted. Social History Smoking/Tobacco Use Status: Never Second Hand Exposure: No Smoking risk assessment performed?: Yes Alcohol Intake: current Alcohol Intake frequency: a few times a week Alcohol type: wine Drug use: Never Substance use type: does not use Counseling provided: none Caregiver/Support person: No Household members: spouse Housing: house Communication Needs: None Do you need help understanding health information?: Rarely current occupation: SELF-EMPLOYED Pets and animals: Yes Pets and animals: cat(s) and dog(s) Sexually active: Yes Do you think of yourself as: straight/heterosexual Current gender identity: female What is your relationship status?: How often do you talk on the phone with friends or family?: three or more times per week How often do you get together with friends or relatives?: three or more times per week How often do you attend mu-ism or adventist services?: decline to answer Do you belong to any clubs or organized social groups?: decline to answer Panel score (0-1 are the most socially isolated patients): 2 What type of physical activity do you participate in: walking Duration: > 90 minutes/day Frequency: daily Dian/Jehovah'S Witness: No preference Special dian needs: No Seatbelt use: always Helmet use: Yes Helmet use: always Drive intox or ride w/intox sales route driver: No Do you feel safe at home: Yes Do you feel safe in your relationship?: Yes Meds Allergies and Home Medications Allergies Allergy/AdvReac Type Severity Reaction Status Date / Time No Known Drug Allergies Allergy Verified 05/17/23 12:54 Home Medications Medication Instructions Recorded Confirmed Type clobetasol 0.05 % scalp solution 1 applic topical DAILY 01/13/22 05/17/23 History triamcinolone acetonide 0.1 % 1 applic topical BID PRN 09/01/22 05/17/23 History topical cream oxycodone 5 mg tablet 10 mg (2 x 5 mg) PO Q6H PRN pain 05/15/23 05/17/23 Rx #10 tabs oxycodone-acetaminophen 5 mg-325 1 tab PO Q6H PRN pain #20 tabs 05/15/23 05/17/23 Rx mg tablet (Percocet) acetaminophen 500 mg tablet 1,000 mg (2 x 500 mg) PO TID #90 05/17/23 Rx tabs ibuprofen 600 mg tablet 600 mg PO TID PRN #90 tabs 05/17/23 Rx oxycodone 5 mg tablet 10 mg (2 x 5 mg) PO Q6H PRN pain 05/17/23 Rx #18 tabs Exam Const General: cooperative, healthy appearing, comfortable and no acute distress Resp Effort & Inspection: normal respiratory effort and able to speak in complete sentences Auscultation: clear to auscultation bilaterally Cardio Rate: regular rate Rhythm: regular rhythm Extrem Other: Right upper extremity is in a splint. There is notable ecchymosis seen throughout the hand and fingers. Basic thumb extension, thumb flexion, index finger flexion an and extension is intact. Sensation grossly intact to the median, radial, ulnar nerve. Results Imaging Imaging Studies: X-ray of the right wrist shows a displaced intra-articular distal radius fracture. There was some improvement with the alignment after reduction although still notable displacement. The articular split has notable diastases with a lunate facet and the scaphoid facet component. No appreciable proximal extension. Last Vital Signs Temp 36.6 C 05/17/23 12:30 Pulse 78 05/17/23 12:30 Resp 18 05/17/23 12:30 BP 119/90 05/17/23 12:30 Pulse Ox 97 05/17/23 12:30
--- NOTE | 2023-05-17 13:45 | DI.RAD_ITS ---
Exam(s) XR WRIST RT LIMITED EXAM: XR WRIST RT LIMITED CLINICAL HISTORY: RIGHT WRIST FRACTURE. TECHNIQUE: 2D and realtime digital imaging was performed. COMPARISON: CR,XR XR WRIST RT LIMITED from 05/13/2023 FINDINGS: Hard copy images show placement of a volar fixation plate along the distal radius.. Please see procedure note for details. Fluoro time: 55seconds RADIATION DOSE DELIVERED: Ka,r=0.40 mGy
--- NOTE | 2023-05-17 14:14 | W.ANESNERVE ---
Nerve Block Single Injection Procedure Date and Time Date Performed: 05/17/23 Procedure Start: 14:14 Location Where Procedure Performed Procedure Location: Day Surgery Unit Reason Performed: Postoperative Analgesia Requesting Provider: Edward Henderson Timeout Performed Timeout Performed: Yes Monitoring Used ECG, Blood Pressure and SpO2 Sterility Sterility: Hand Hygiene, Surgical Cap, Surgical Mask, Sterile Gloves and Chlorhexidine Sedation Given During Procedure Sedation Given (Indicate Dose Given): Versed IV Dose:: 2 mg Patient Mental Status Patient Mental Status: Sedate with meaningful communication Nerve Block 1st Nerve Block: Laterality: Right Block Type: Axillary Ultrasound Image Saved?: Yes Needle / Catheter Used: 100mm SonoPlex II Local Anesthetic Bolus (Indicate Dose Given): Lidocaine used for local infiltration of skin, Injected in 3-5ml increments after negative blood aspiration and Bupivacaine 0.5% Dose:: 20 ml Additives (Indicate Dose Given): Normal Saline (for hydrodissection) Ultrasound: Sterile probe cover and gel used Nerve Stimulator: Supplement to Ultrasound use and No twitch or parasthesia noted < 0.5 mA Paresthesia: None Post Procedure Pain score (0-10): 4 Procedure Tolerated: No Complications and Patient tolerated well Procedure Outcome: Successful Performed By: Heath Grullon
[2023-05-17] MEDS: ceFAZolin 2 GM/50 ML BAG IVPB (14:30)
[2023-05-17] MEDS: Bupivacaine 0.5% Pres-Free 30 ML VIAL (14:48)
[2023-05-17] MEDS: EPINEPHrine 1 MG/ML AMP pres-free (14:48)
[2023-05-17] MEDS: Droperidol 5 MG/2 ML VIAL 0.625 MG IVP (16:11)
[2023-05-17] MEDS: fentaNYL 100 MCG/2 ML VIAL IVP (16:22)
[2023-05-17] MEDS: oxyCODONE 5 MG TAB PO (17:09)
--- NOTE | 2023-05-17 17:46 | ROE_ITS ---
Date of service: 05/17/23 Time of Service: 14:30 Operative Note Operative Note DATE OF PROCEDURE: 05/17/23 PRE-OP DIAGNOSIS: Right Distal Radius Fracture POST-OP DIAGNOSIS: same PROCEDURE: Open Reduction and Internal Fixation of Right Distal Radius, 3 parts SURGEON: Edward Henderson A/C TECHNICIAN: Nishant Siegel ANESTHESIA TYPE: General:No Airway and Primary Nerve Block Refer to Anesthesia Record ESTIMATED BLOOD LOSS: 10 PATHOLOGY: none sent TOURNIQUET TIME: 44 COMPLICATIONS: None Patient was transported to: PACU Patient's condition: stable Indications: Hellen is a 62 year old female who I have seen for a distal radius fracture. Given the deformity, displacement, fracture pattern, and effect on daily function, I recommended surgical fixation. I reviewed the risk of the procedure to include bleeding, infection co-pay, stiffness, damage to nerves and vessels, damage to muscles and tendons, malunion, nonunion, hardware prominence, tendon rupture, need for repeat procedures. Despite these risks, the patient elected to proceed. Findings: There is a distal radius fracture which had 3 parts. It was reduced and fixed with a Synthes volar locking plate. Procedure Description: Hellen was greeted in the preoperative holding area. The correct patient and site was confirmed and marked. The history and physical was updated. The consent was reviewed the patient and signed. The patient was taken to the PACU for administration of regional anesthetic, axillary block. The patient was taken to the operating room and placed in the supine position. All bony problems were well-padded. The side arm was placed onto a radiolucent hand table. A nonsterile tourniquet was placed high up on the arm. Prophylactic antibiotics in the form of cefazolin were administered. The left arm was prepped with Chl oraPrep and draped in a standard fashion. A timeout was performed for safe surgery. A standard longitudinal incision was made overlying the flexor carpi radialis tendon starting at the distal wrist crease and moving proximally. The skin was incised sharply. The flexor carpi radialis tendon and its sheath is identified. The sheath was opened. The tendon was moved ulnarly in the floor of the sheath was incised. Blunt dissection the flexor pollicis longus muscle belly and tendon were also made radially exposing the pronator quadratus and the distal radius. There is a large tear of the pronator quadratus with portion of the muscle interposed between the volar fracture fragments. The pronater quadratus was elevated with an ulnar-based flap. This exposed the volar distal radius and the fracture. A helton elevator was used for full exposure of the volar surface of the distal radius. The primary fracture line was exposed. Using a series of elevators, curettes, and knife, the fracture was fully debrided of any fibrous tissue and callus formation. I used a freer elevator to help mobilize the fragments. There is a primary volar fracture in the metaphyseal region with a fracture line extending distally between the lunate and scaphoid facets. I then performed a closed reduction with the assistance of a [place] to shoehorn the fracture back in location.. Using gentle traction and fracture manipulation, this reduction was held. Fluoroscopic images were used to confirm adequate reduction. An appropriately sized Synthes volar locking plate was then placed onto the bony surface of the distal radius. Was then held there with a distal radius clamp sandwiching the plate to the distal segment. A single K wire was placed through the distal end. Fluoroscopy was once again used to confirm appropriate positioning of the plate on the distal radius. A reduction K wire was placed into the slotted hole on the shaft but not tightened all the way to allow for manipulation of the distal segment onto the proximal shaft. A single nonlocking screw was placed to the distal portion of the plate securing the plate against the bone of the distal radial metaphysis. Once again, the plate was evaluated to make sure it was aligned appropriately. The single screw was also checked to make sure it was in appropriate positioning for trajectory of future screws. The remainder of the screws within the volar locking plate were filled with locking screws. These were made sure not to penetrate the dorsal cortex. Once these were applied the proximal portion of the plate was further reduced down onto the shaft, which further reduce the distal segment. This was held in position with a tightened reduction K wire. Fluoroscopy was then used against confirm appropriate reduction. Nonlocking screws were placed within the 3 shaft screw holes. The distal nonlocking screw from earlier was replaced with a locking screw. Final x-rays were obtained which demonstrated adequate reduction and positioning of hardware. The dorsal sunrise view was also obtained to ensure correct sizing of screws. The wound was then thoroughly irrigated. The pronator quadratus was reapproximated with a 0 Vicryl, only proximally given the tearing of the muscle and encountered at the onset of the case. The tourniquet was released and there was no notable vascular injury. The fingers were warm and well-perfused. The deep dermal layer was closed with a 2-0 Vicryl. The skin was closed with 4-0 nylon. The wound was dressed with Xeroform, 4 x 4's, web roll. A short arm splint was applied. At the end the case all counts are correct. Patient was transferred back to the PACU in stable condition.
--- NOTE | 2023-05-17 17:48 | W.ANESPOSTOP ---
Postoperative Evaluation Date, Time and Location Date Performed: 05/17/23 Time Performed: 17:42 Patient Location: Day Surgery Unit Vital Signs Most Recent Imported Vital Signs: Most Recent Vital Signs Temp Pulse Resp BP Pulse Ox 36.6 C 73 16 159/89 H 95 05/17/23 17:18 05/17/23 17:18 05/17/23 17:18 05/17/23 17:18 05/17/23 17:18 Pain Score Most Recent Pain Score: Most Recent Pain Score Pain Level 6 05/17/23 17:18 Assessment Mental Status: Awake (Alert & Oriented to Patient Baseline) Airway and Respiratory Function: Patent airway with normal (patient baseline) respiratory exam Cardiovascular Function: Hemodynamically Stable Hydration Status: Adequately Hydrated Nausea & Vomiting: No Nausea or Vomiting (Had some nausea which has now resolved. ) Pain: Pt. Denies Any Pain Peripheral Nerve Block: Regional nerve block not resolved at time of post operative discharge
== END 2023-05-17 18:06 | disposition home or self-care (01) ==
PROVIDERS: PCP Family Medicine; Visit Provider Student in an Organized Health Care Education/Training Program
PROC: (CPT 25609; principal; 2023-05-17 15:15)
DX: S52.571A Other intraarticular fracture of lower end of right radius, initial encounter for closed fracture (principal); W19.XXXA Unspecified fall, initial encounter; D64.9 Anemia, unspecified; Z96.653 Presence of artificial knee joint, bilateral
CPT/HCPCS: 25609; 64417; 76942; 73100; J0171; J0690; J1100; J1790; J1885; J2001; J2250; J2405; J2704; J3010

== ENCOUNTER 2023-05-29 15:17 | Outpatient (CLI) | payer MEDICAID, SELFPAY ==
--- NOTE | 2023-05-29 13:45 | DI.RAD_ITS ---
Exam(s) XR WRIST RT LIMITED EXAM: XR WRIST RT LIMITED CLINICAL HISTORY: S/P ORIF R DISTAL RAD FX. TECHNIQUE: 2D digital imaging was performed of the right wrist. Two views were obtained. PA and la teral views were obtained. COMPARISON: CR,XR XR WRIST RT LIMITED from 05/13/2023 CR XR WRIST RT LIMITED from 05/17/2023 FINDINGS: BONES: The patient is now status post ORIF of the distal radial fracture. Alignment appears near annabella tomic. There is a displaced ulnar styloid process fracture again seen. No bony destructive lesion i s seen. JOINTS: The carpal bones are normally aligned. SOFT TISSUE: Normal. IMPRESSION: Status post ORIF of the distal right radial fracture. Displaced ulnar styloid process fracture. DATA REPOSITORY: RADIATION DOSE DELIVERED:
== END 2023-05-29 15:18 | disposition home or self-care (01) ==
LOC: DIORS 15:17
PROVIDERS: PCP Family Medicine; Visit Provider Student in an Organized Health Care Education/Training Program
DX: S52.571D Other intraarticular fracture of lower end of right radius, subsequent encounter for closed fracture with routine healing (principal); X58.XXXD Exposure to other specified factors, subsequent encounter
CPT/HCPCS: 73100

== ENCOUNTER 2023-06-26 16:03 | Outpatient (CLI) | payer MEDICAID, SELFPAY ==
--- NOTE | 2023-06-26 14:15 | DI.RAD_ITS ---
Exam(s) XR WRIST RT LIMITED EXAM: XR WRIST RT LIMITED INDICATION: F/U lR distal radius fx. COMPARISON: CR XR WRIST RT LIMITED from 05/29/2023 TECHNIQUE: 2D digital imaging was performed. Two views. FINDINGS: There has been no change in the alignment of the distal radial fracture. The fixation plate is uncha nged. Bony densities again noted adjacent to the ulnar styloid. DATA REPOSITORY: RADIATION DOSE DELIVERED:
== END 2023-06-26 16:04 | disposition home or self-care (01) ==
LOC: DIORS 16:03
PROVIDERS: PCP Family Medicine; Visit Provider Student in an Organized Health Care Education/Training Program
DX: S52.501D Unspecified fracture of the lower end of right radius, subsequent encounter for closed fracture with routine healing (principal); X58.XXXD Exposure to other specified factors, subsequent encounter
CPT/HCPCS: 73100

== ENCOUNTER → 2023-07-03 01:32 | Outpatient (CLI) | payer MEDICAID, SELFPAY ==
--- NOTE | 2023-07-03 07:00 | DI.MRI_ITS ---
Exam(s) MR UPPER JOINT RT WO EXAM: MR UPPER JOINT RT WO CLINICAL HISTORY: pain,rt rotator cuff tear,m75.101. TECHNIQUE: Multiplanar multisequence MRI was performed. COMPARISON: None. FINDINGS: BONES: There is no fracture or contusion pattern. Undo degenerative changes at the greater tuberosi ty. JOINTS:The acromioclavicular joint shows mild spurring. Spurring at the tip of the acromion. The gl enohumeral joint shows a moderate effusion. Humeral head articulates with the undersurface of the ac romion. TENDONS: Supraspinatus: Full-thickness tear with retraction to the level of the glenoid. Infraspinatus: Full-thickness tear with retraction Subscapularis: Unremarkable. Teres Minor: Unremarkable. Biceps and Supply: Proximal thickening and intermediate signal. No focal tear. MUSCLES: Mild supraspinatus muscle atrophy, Goutallier classification 2. Alcp-ib-tdeuptrn atrophy o f infraspinatus muscle. GLENOID LABRUM: Unremarkable on this noncontrast examination. SOFT TISSUES: Unremarkable. OTHER: Subacromial and subdeltoid bursae shows moderate fluid. Amount fluid in subcoracoid bursa. IMPRESSION: Full-thickness tears with retraction of the infraspinatus and supraspinatus tendons. Tgbl-ey-dcqsstp e muscle atrophy. Proximal biceps tendinosis. DATA REPOSITORY:
== END ==
PROVIDERS: PCP Family Medicine; Visit Provider Student in an Organized Health Care Education/Training Program
DX: M75.121 Complete rotator cuff tear or rupture of right shoulder, not specified as traumatic (principal)
CPT/HCPCS: 73221

== ENCOUNTER 2023-07-27 13:05 | Outpatient (CLI) | payer MEDICAID, SELFPAY ==
--- NOTE | 2023-07-27 10:30 | DI.RAD_ITS ---
Exam(s) XR WRIST RT LIMITED EXAM: XR WRIST RT LIMITED CLINICAL HISTORY: S/P ORIF R DISTAL RAD FX. TECHNIQUE: 2D digital imaging was performed. Three images were obtained. PA and lateral views were obtained. COMPARISON: CR,XR XR WRIST RT COMPLETE from 05/13/2023 CR XR WRIST RT LIMITED from 06/26/2023 FINDINGS: BONES: There are stable post operative changes present. The fracture of the distal radius is again s een. There is no change in alignment of the orthopedic hardware fracture components. No new fractur e is seen. Bony densities are again seen in the region of the ulnar styloid process. JOINTS: The joint spaces are well maintained. SOFT TISSUE: Normal. IMPRESSION: Stable postoperative changes. DATA REPOSITORY: RADIATION DOSE DELIVERED:
== END 2023-07-27 13:06 | disposition home or self-care (01) ==
LOC: DIORS 13:06
PROVIDERS: PCP Family Medicine; Referring Provider Family Medicine; Visit Provider Student in an Organized Health Care Education/Training Program
DX: Z98.890 Other specified postprocedural states (principal)
CPT/HCPCS: 73100

== ENCOUNTER 2023-09-21 05:19 | Outpatient (CLI) | payer MEDICAID, SELFPAY ==
[2023-09-21 11:50] LABS: Calculated LDL 176 mg/dL (<100); Cholesterol 289 mg/dL (<200); HDL Cholesterol 95 mg/dL (40-60); Triglyceride 94 mg/dL (<150)
== END 2023-09-21 05:20 | disposition home or self-care (01) ==
LOC: LBO 05:19
PROVIDERS: PCP Family Medicine; Visit Provider Family Medicine
DX: G40.909 Epilepsy, unspecified, not intractable, without status epilepticus (principal); E78.5 Hyperlipidemia, unspecified
CPT/HCPCS: 36415; 80061; 82306

== ENCOUNTER 2024-08-22 03:52 | Outpatient (CLI) | payer MEDICAID, SELFPAY ==
[2024-08-22 07:43] LABS: HCT 43.1 % (36.0-46.0); MCH 30.2 pg (27.0-33.0); MCHC 32.5 % (32.0-36.0); MCV 93 fL (80-95); MPV 10.7 fL (8.0-11.0); Platelet Count 207 10^3/uL (130-400); RBC 4.63 10^6/uL (3.93-5.22); RDW 12.9 % (11.7-14.6); RDW-SD 44.2 fL; WBC 4.96 10^3/uL (4.4-10.8)
[2024-08-22 08:08] LABS: ALT 28 U/L (14-59); AST 19 U/L (15-37); Albumin 3.8 g/dL (3.4-5.0); Alkaline Phosphatase 82 U/L (46-116); Anion Gap 6.8 mmol/L (3-11); BUN 16 mg/dL (7-18); CO2 29.2 mmol/L (21.0-32.0); CREATININE 0.9 mg/dL (0.55-1.02); Calcium 9.3 mg/dL (8.5-10.1); Calculated LDL 185 mg/dL (<100); Chloride 107 mmol/L (98-107); Cholesterol 292 mg/dL (<200); Estimated GFR 71.83 (mL/min/1.73m2); Glucose 99 mg/dL (74-106); HDL Cholesterol 95 mg/dL (40-60); Potassium 4.4 mmol/L (3.5-5.1); Sodium 143 mmol/L (136-145); TSH (W/Ref FT4) 1.69 uIU/mL (0.36-3.74); Total Protein 7.1 g/dL (6.4-8.2); Triglyceride 63 mg/dL (<150)
[2024-08-24 12:37] LABS: Lipoprotein (a) 63 nmol/L (<75)
[2024-08-27 16:10] LABS: Apolipoprotein B, Serum 122 mg/dL (48-124); Beta VLDL Cholesterol Not Detected mg/dL (<15); Beta VLDL Triglycerides Not Detected mg/dL (<15); Cholesterol, Total, CDC 283 mg/dL; Chylomicron Cholesterol Not Detected; Chylomicron Triglycerides Not Detected; HDL Cholesterol, CDC 85 mg/dL (>=50); LDL Cholesterol 181 mg/dL; LDL Triglycerides 36 mg/dL (<=50); Lp(a) Cholesterol 11 mg/dL (<5); LpX Not detected; Triglycerides, CDC 77 mg/dL; VLDL Cholesterol 6 mg/dL (<30); VLDL Triglycerides 23 mg/dL (<120)
[2024-08-28 10:15] LABS: Vitamin K1 0.29 ng/mL (0.10-2.20)
== END 2024-08-22 03:53 | disposition home or self-care (01) ==
PROVIDERS: Student in an Organized Health Care Education/Training Program; PCP Family Medicine; Referring Provider Family Medicine; Visit Provider Family Medicine
DX: Z86.2 Personal history of diseases of the blood and blood-forming organs and certain disorders involving the immune mechanism (principal); E55.9 Vitamin D deficiency, unspecified; K90.9 Intestinal malabsorption, unspecified; D64.9 Anemia, unspecified; Z82.49 Family history of ischemic heart disease and other diseases of the circulatory system; Z91.89 Other specified personal risk factors, not elsewhere classified; I10 Essential (primary) hypertension; Z13.220 Encounter for screening for lipoid disorders; E78.00 Pure hypercholesterolemia, unspecified
CPT/HCPCS: 36415; 80053; 80061; 83695; 85027; 82172; 82664; 83735; 84443; 84597

== ENCOUNTER 2024-09-18 01:49 | Outpatient (CLI) | payer MEDICAID, SELFPAY ==
--- NOTE | 2024-09-18 07:30 | DI.MAMMO_ITS ---
Exam(s) MAMMO SCREENING EXAM: MAMMO SCREENING CLINICAL HISTORY: screening,Z12.39 TECHNIQUE: Mammograms were interpreted according to the usual protocol including computer analysis w [facility] CAD system, tomosynthesis and C-view imaging. COMPARISON: 2015 through 2022 FINDINGS: The breasts are composed of scattered fibroglandular densities, Breast Density category B. No suspicious masses or suspicious microcalcifications are seen. No skin thickening or abnormal axillary lymph nodes are seen. In the upper anterior right breast tissue, on the MLO view, there is question of a small area of nodu larity measuring 7 millimeters. No definite abnormality is seen on the CC view. There is a stable s mall lymph node in the upper outer quadrant. There has been no change in the appearance of the left breast. IMPRESSION: BI-RADS Category 0 - Incomplete: Need additional imaging evaluation -spot compression views and ultra sound recommended for further evaluation. Breast Density - Category B, scattered fibroglandular densities. A negative radiographic report should not delay biopsy if a dominant or clinically suspicious mass is present. Up to ten percent of cancers are not identified on mammography. A negative report may reinforce clinical impression. Adenosis and dense breasts may obscure an underlying neoplasm. False positive reports average 6 to 10%. Patient will receive a letter notifying them of these results.
== END 2024-09-18 02:09 ==
LOC: DI 01:49
PROVIDERS: PCP Family Medicine; Visit Provider Student in an Organized Health Care Education/Training Program
DX: Z12.31 Encounter for screening mammogram for malignant neoplasm of breast (principal); R92.323 Mammographic fibroglandular density, bilateral breasts
CPT/HCPCS: 77063; 77067

== ENCOUNTER 2024-09-19 14:44 | Outpatient (CLI) | payer MEDICAID, SELFPAY ==
--- NOTE | 2024-09-19 14:52 | DI.RAD_ITS ---
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 TECHNIQUE: 2D digital imaging was performed. Three views. COMPARISON: MR MR UPPER JOINT RT WO from 07/03/2023 FINDINGS: BONES: No acute fracture is present. No bony destructive lesion is seen. JOINTS: No dislocation present. Glenohumeral joint space is maintained. There is minimal spurring a t the AC joint and glenoid. SOFT TISSUE: Normal. IMPRESSION: Minimal degenerative changes. DATA REPOSITORY: RADIATION DOSE DELIVERED:
--- NOTE | 2024-09-19 15:05 | DI.RAD_ITS ---
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 TECHNIQUE: 2D digital imaging was performed. Five views were performed. COMPARISON: No exams were available for comparison FINDINGS: BONES: No fracture or destructive lesion. Vertebral bodies are unremarkable. No cervical ribs. Fac et degenerative changes noted. Multilevel bilateral neural foraminal narrowing, greatest at C5-6 thr ough C7-T1. DISKS: Moderate narrowing of the C6-7 disc space. The remaining intervertebral disc spaces are maint ained. Multilevel uncovertebral joint osteophytes. ALIGNMENT: Cervical spinal alignment is within normal limits. The odontoid and atlantoaxial articulat ions are normal. SOFT TISSUE: Normal. The lung apices are clear. IMPRESSION: Degenerative changes causes bilateral neural foraminal narrowing. DATA REPOSITORY: RADIATION DOSE DELIVERED:
== END 2024-09-19 15:04 ==
LOC: DI 14:44
PROVIDERS: PCP Family Medicine; Visit Provider Family Medicine
DX: G54.0 Brachial plexus disorders (principal)
CPT/HCPCS: 72050; 73030

== ENCOUNTER 2024-09-20 00:18 | Outpatient (CLI) | payer MEDICAID, SELFPAY ==
--- NOTE | 2024-09-20 | DI.US_ITS ---
Exam(s) MG MAMMO SCREEN CALL BACK UNI US BREAST RT LIMITED EXAM: MG MAMMO SCREEN CALL BACK UNI CLINICAL HISTORY: F/U MAMMO, R92.8,? RT UPPER ANT NODULARITY. TECHNIQUE: Craniocaudal and mediolateral oblique spot compression digital Mammography views of the b reast with Tomosynthesis and breast ultrasound. COMPARISON: 2016 through recent exam of 10/01September 17 FINDINGS: Mammography/Tomosynthesis: Masses: None seen. No persistent nodule in the superior right breast. Architectural Distortion: None seen. Microcalcifictions: No suspicious pleomorphic-type are seen. Skin Thickening/Nipple Retraction: None. Right breast US: Echotexture: Normal appearance of the glandular tissue. Shadowing: No suspicious foci. Cyst: None. Solid lesions: None seen. Ductal dilation: None. A normal appearing lymph node in the upper outer quadrant posteriorly. IMPRESSION: 1. No evidence of malignancy is noted. 2. Unless there is more urgent need, follow-up screening mammography is recommended, as per [place] [employer] guidelines. 3. The findings were discussed with the patient on the date of the examination. BI-RADS Category 1 - Negative Breast Density - Category B - Scattered areas of fibroglandular density A negative radiographic report should not delay biopsy if a dominant or clinically suspicious mass is present. Up to ten percent of cancers are not identified on mammography. A negative report may reinforce clinical impression. Adenosis and dense breasts may obscure an underlying neoplasm. False positive reports average 6 to 10%. Patient will receive a letter notifying them of these results.
--- NOTE | 2024-09-20 09:39 | DI.MAMMO_ITS ---
Exam(s) MAMMO SCREEN CALL BACK UNI EXAM: MAMMO SCREEN CALL BACK UNI CLINICAL HISTORY: F/U MAMMO, R92.8,? RT UPPER ANT NODULARITY. TECHNIQUE: Craniocaudal and mediolateral oblique spot compression digital Mammography views of the b reast with Tomosynthesis and breast ultrasound. COMPARISON: 2016 through recent exam of 10/01September 17 FINDINGS: Mammography/Tomosynthesis: Masses: None seen. No persistent nodule in the superior right breast. Architectural Distortion: None seen. Microcalcifictions: No suspicious pleomorphic-type are seen. Skin Thickening/Nipple Retraction: None. Right breast US: Echotexture: Normal appearance of the glandular tissue. Shadowing: No suspicious foci. Cyst: None. Solid lesions: None seen. Ductal dilation: None. A normal appearing lymph node in the upper outer quadrant posteriorly. IMPRESSION: 1. No evidence of malignancy is noted. 2. Unless there is more urgent need, follow-up screening mammography is recommended, as per [place] [employer] guidelines. 3. The findings were discussed with the patient on the date of the examination. BI-RADS Category 1 - Negative Breast Density - Category B - Scattered areas of fibroglandular density A negative radiographic report should not delay biopsy if a dominant or clinically suspicious mass is present. Up to ten percent of cancers are not identified on mammography. A negative report may reinforce clinical impression. Adenosis and dense breasts may obscure an underlying neoplasm. False positive reports average 6 to 10%. Patient will receive a letter notifying them of these results.
== END 2024-09-20 00:38 ==
LOC: DI 00:18
PROVIDERS: PCP Family Medicine; Visit Provider Student in an Organized Health Care Education/Training Program
DX: Z12.31 Encounter for screening mammogram for malignant neoplasm of breast (principal); R92.8 Other abnormal and inconclusive findings on diagnostic imaging of breast
CPT/HCPCS: 76642; 77063; 77067

== ENCOUNTER 2024-10-21 14:36 | Outpatient (CLI) | payer MEDICAID, SELFPAY ==
--- NOTE | 2024-10-21 13:30 | DI.MRI_ITS ---
Exam(s) MR CERVICAL SPINE WO EXAM: MR CERVICAL SPINE WO CLINICAL HISTORY: Thoracic outlet syndrome vs cervical radiculopathy, M53.1, G54.0 TECHNIQUE: Multiplanar multisequence MRI of the cervical spine was performed without intravenous con trast. COMPARISON: CR XR CERVICAL SPINE COMP 4-5V from 09/19/2024 FINDINGS: CERVICOMEDULLARY JUNCTION: Intact with no evidence of cerebellar tonsillar ectopia. No obvious abnor mality of the odontoid process. No evidence of Chiari 1 malformation. CERVICAL SPINAL CORD: There is no abnormal signal in the cervical spinal cord and no evidence of foca l cord atrophy nor focal cord swelling. OSSEOUS:There are no cervical fractures evident. No significant osseous lesions in the cervical vert ebrae. Cervical curvature is maintained. INDIVIDUAL LEVELS: C2-3: No disc herniation nor central canal stenosis. No foraminal stenosis. Left facet joint unremar kable. Mild degenerative changes in the right facet joint. No foraminal stenosis on either side. C3-4: Normal disc height. Posteriorly there is asymmetric right-sided annular bulging which effaces the anterior right side of the thecal sac at this level but not the spinal cord. There are mild dege nerative changes in the right facet joint and moderate degenerative changes in the left facet joint a t this level. There is mild right-sided foraminal stenosis at this level. Milder left-sided foramin al stenosis. C4-5: This level exhibits relatively preserved disc height. Posteriorly there is broad annular bulgi ng which effaces the thecal sac on both sides and there is mild-moderate central spinal canal stenosi s. AP measurement of the canal at this level 6.5 mm. There are bilateral disc-osteophyte complexes. There is significant bilateral facet arthropathy. There is moderate bilateral foraminal stenosis a t this level evident. C5-6: Mild disc space narrowing. Anterior osseous lipping. Posteriorly there is broad annular bulgi ng which effaces the thecal sac and there are bilateral disc-osteophyte complexes. Disc protrusion n oted on the lateral right side at this level. There is mild central spinal canal stenosis with AP me asurement of the canal being 6 mm at this level. There are minimal degenerative changes in the facet joints at this level. There is moderate foraminal stenosis on the right side. Mild foraminal steno sis on the left side. C6-7: This level exhibits moderate-advanced disc space narrowing. Posteriorly there is relatively sy mmetrical annular bulging. Small bilateral disc-Luschka joint osteophyte complexes. No dominant dis c herniation in the central canal dimensions are lower normal. Facet joints appear relatively unrema rkable. Mild foraminal stenosis on the left side. No obvious foraminal stenosis on the right side a t this level. C7-T1: No disc herniation nor central canal stenosis. No facet arthropathy.No foraminal stenosis. IMPRESSION: 1. Multilevel degenerative disc disease as described per individual level above. 2. There is mild-moderate central spinal canal stenosis at C4-5 level and mild central canal stenosis at C5-6 level. There is asymmetric foraminal stenosis at multiple levels as described above. DATA REPOSITORY:
== END 2024-10-21 14:56 ==
LOC: DI 14:37
PROVIDERS: PCP Family Medicine; Visit Provider Family Medicine
DX: M53.1 Cervicobrachial syndrome (principal); G54.0 Brachial plexus disorders
CPT/HCPCS: 72141